=== PATIENT | male | born 1955 | race African-American/Black ===

== ENCOUNTER 2019-06-01 17:02 | Emergency (ER) | payer MEDICAID ==
[~2019-06-01] VITALS: Ht 154.9 cm; Wt 84.1 kg
[~2019-06-01 17:02] MED LIST: BUPR-93 PO; RISP2 PO
[2019-06-01 18:04] LABS: ANION GAP 14 mmol/L (8-16); CALCIUM, TOTAL 9.1 mg/dL (8.8-10.5); CARBON DIOXIDE 25 mmol/L (22-29); CHLORIDE 104 mmol/L (98-107); CREATININE 0.81 mg/dL (0.60-1.30); GLOMERULAR FILTR. RATE CALC > 60 mL/min (>60); GLUCOSE,RANDOM 92 mg/dL (70-110); POTASSIUM 3.9 mmol/L (3.5-5.1); SODIUM SERUM 143 mmol/L (136-145); UREA NITROGEN, BLOOD 4 mg/dL (7-18)
[2019-06-01 18:17] LABS: ALANINE AMINOTRANSFERASE 36 U/L (12-78); ALBUMIN 3.8 g/dL (3.4-5.0); ALKALINE PHOSPHATASE 101 U/L (46-116); ASPARTATE AMINOTRANSFERASE 46 U/L (15-37); BILIRUBIN,TOTAL 0.2 mg/dL (0.1-1.0); TOTAL PROTEIN, SERUM 8.1 g/dL (6.4-8.2)
[2019-06-01 18:20] LABS: BASOPHILS % (AUTO) 1.2 % (0.0-2.0); EOSINOPHILS % (AUTO) 3.4 % (1.0-6.0); HEMATOCRIT 44.9 % (41-53); HEMOGLOBIN 14.8 g/dL (13.5-17.5); LYMPHOCYTES # (AUTO) 2.8 K/uL (1.0-4.8); LYMPHOCYTES % (AUTO) 43.4 % (22.0-44.0); MEAN CORPUSCULAR HEMOGLOBIN 32.5 pg (26.0-34.0); MEAN CORPUSCULAR VOLUME 99 fL (80-100); MONOCYTES # (AUTO) 0.6 K/uL (0.1-1.0); MONOCYTES % (AUTO) 8.5 % (2.0-9.0); NEUTROPHILS # (AUTO) 2.9 K/uL (1.8-7.7); NEUTROPHILS % (AUTO) 43.5 % (40.0-70.0); PLATELET COUNT (AUTO) 260 K/uL (150-450); RED BLOOD CELL COUNT(AUTO) 4.56 MIL/uL (4.50-5.90)
[2019-06-01 18:34] LABS: AMPHET/METH SCREEN,URINE NEGATIVE (NEGATIVE); BARBITURATE SCREEN, URINE NEGATIVE (NEGATIVE); BENZODIAZEPINES SCREEN,URINE NEGATIVE (NEGATIVE); CANNABINOID SCREEN,URINE NEGATIVE (NEGATIVE); COCAINE SCREEN,URINE NEGATIVE (NEGATIVE); METHADONE SCREEN, URINE NEGATIVE (NEGATIVE); OPIATE SCREEN,URINE NEGATIVE (NEGATIVE)
[2019-06-01 18:38] LABS: PHENCYCLIDINE SCREEN,URINE NEGATIVE (NEGATIVE)
[2019-06-01] MEDS ORDERED: ACETAMINOPHEN 325 MG TABLET PO PRN (21:15)
[2019-06-01] MEDS ORDERED: ONDANSETRON HCL 4 MG/2 ML VIAL IVP PRN (21:15)
[2019-06-01] MEDS ORDERED: TOBRAMYCIN/DEXAMETHASONE 5 ML OPHTHALMIC SUSPENSION OU ONE (21:15)
[2019-06-01] MEDS: 0.9% SODIUM CHLORIDE 10 ML SYRINGE IVP PRN ×2 (21:25→21:26)
[2019-06-01] MEDS ORDERED: ONDANSETRON HCL 4 MG/2 ML VIAL IVP ONE (21:30)
[2019-06-01] MEDS ORDERED: SODIUM CHLORIDE 0.9% 1,000 ML IV ONE (21:30)
[2019-06-01 23:28] VITALS: BP 102/70
== END 2019-06-02 06:30 | disposition home or self-care (01) ==
LOC: EMS 17:02
DX: F10.129 Alcohol abuse with intoxication, unspecified (principal); R45.851 Suicidal ideations; M25.552 Pain in left hip; F32.9 Major depressive disorder, single episode, unspecified; F20.9 Schizophrenia, unspecified; F17.210 Nicotine dependence, cigarettes, uncomplicated; Y90.8 Blood alcohol level of 240 mg/100 ml or more
CPT/HCPCS: 36415; 80053; 80307; 85025; 96374; 99284; 99406; G0480; J2405; J7030

== ENCOUNTER 2019-06-20 16:47 | Emergency (ER) | payer MEDICAID ==
[~2019-06-20] VITALS: Ht 185.4 cm; Wt 81.8 kg
[2019-06-20] MEDS ORDERED: IRON18TA PO (16:59)
[2019-06-20] MEDS ORDERED: MULT-1203 PO (16:59)
[2019-06-20] MEDS ORDERED: NAPR-1024 PO (16:59)
[2019-06-20] MEDS ORDERED: SODIUM CHLORIDE 0.9% 1,000 ML IV ONE (17:00)
[2019-06-20 17:23] LABS: BASOPHILS % (AUTO) 0.8 % (0.0-2.0); EOSINOPHILS % (AUTO) 1.6 % (1.0-6.0); HEMATOCRIT 40.1 % (41-53); HEMOGLOBIN 13.3 g/dL (13.5-17.5); LYMPHOCYTES # (AUTO) 2.2 K/uL (1.0-4.8); LYMPHOCYTES % (AUTO) 47.1 % (22.0-44.0); MEAN CORPUSCULAR HEMOGLOBIN 32.8 pg (26.0-34.0); MEAN CORPUSCULAR HGB CONC 33.2 G/dL (31.0-37.0); MEAN CORPUSCULAR VOLUME 99 fL (80-100); MONOCYTES # (AUTO) 0.5 K/uL (0.1-1.0); MONOCYTES % (AUTO) 10.2 % (2.0-9.0); NEUTROPHILS # (AUTO) 1.8 K/uL (1.8-7.7); NEUTROPHILS % (AUTO) 40.3 % (40.0-70.0); PLATELET COUNT (AUTO) 248 K/uL (150-450); RED BLOOD CELL COUNT(AUTO) 4.05 MIL/uL (4.50-5.90); RED CELL DISTRIBUTION WIDTH 16.1 % (11.5-14.5)
[2019-06-20 17:39] LABS: AMMONIA 22 umol/L (11-32)
[2019-06-20 17:40] LABS: TROPONIN I < 0.02 ng/mL (0.00-0.05)
[2019-06-20 17:50] LABS: SALICYLATE 4.4 mg/dL (2.8-20.0)
[2019-06-20 17:59] LABS: CARBON DIOXIDE 20 mmol/L (22-29); CHLORIDE 105 mmol/L (98-107); POTASSIUM 3.5 mmol/L (3.5-5.1); SODIUM SERUM 140 mmol/L (136-145)
[2019-06-20 18:00] LABS: ALANINE AMINOTRANSFERASE 36 U/L (12-78); ALBUMIN 3.3 g/dL (3.4-5.0); ALKALINE PHOSPHATASE 76 U/L (46-116); ANION GAP 15 mmol/L (8-16); ASPARTATE AMINOTRANSFERASE 55 U/L (15-37); BILIRUBIN,TOTAL 0.3 mg/dL (0.1-1.0); CALCIUM, TOTAL 8.1 mg/dL (8.8-10.5); CREATINE KINASE, TOTAL ONLY 272 U/L (39-308); CREATININE 1.22 mg/dL (0.60-1.30); GLOMERULAR FILTR. RATE CALC > 60 mL/min (>60); GLUCOSE,RANDOM 94 mg/dL (70-110); TOTAL PROTEIN, SERUM 6.6 g/dL (6.4-8.2); UREA NITROGEN, BLOOD 5 mg/dL (7-18)
[2019-06-20 18:18] LABS: APPEARANCE,URINE CLEAR (CLEAR); BILIRUBIN,URINE NEGATIVE (NEGATIVE); GLUCOSE, URINE (UA) NEGATIVE (NEGATIVE); KETONES,URINE NEGATIVE (NEGATIVE); LEUKOCYTE ESTERASE ,URINE NEGATIVE (NEGATIVE); NITRATE,URINE NEGATIVE (NEGATIVE); OCCULT BLOOD,URINE NEGATIVE (NEGATIVE); PH,URINE 5.5 (5.0-8.0); PROTEIN,URINE POS 1+ (NEGATIVE); UROBILINOGEN,URINE 0.2 mg/dL (<=1.0)
[2019-06-20 18:22] LABS: ACETAMINOPHEN < 2 mcg/mL (10-30)
[2019-06-20 18:27] LABS: B-TYPE NATRIURETIC PEPTIDE 43 pg/mL (0-100)
[2019-06-20 18:29] LABS: AMPHET/METH SCREEN,URINE NEGATIVE (NEGATIVE); BARBITURATE SCREEN, URINE NEGATIVE (NEGATIVE); BENZODIAZEPINES SCREEN,URINE NEGATIVE (NEGATIVE); CANNABINOID SCREEN,URINE NEGATIVE (NEGATIVE); COCAINE SCREEN,URINE NEGATIVE (NEGATIVE); METHADONE SCREEN, URINE NEGATIVE (NEGATIVE); OPIATE SCREEN,URINE NEGATIVE (NEGATIVE); PHENCYCLIDINE SCREEN,URINE NEGATIVE (NEGATIVE)
[2019-06-20 18:32] LABS: BACTERIA,URINE None Seen /HPF (None Seen); RBC,URINE 0-2 /HPF (0-2); SQUAMOUS EPITHELIAL CELL,UR Rare /LPF (None Seen)
[2019-06-20] MEDS ORDERED: MAGNESIUM SULFATE 2 GM, MVI, ADULT NO.1 WITH VIT K 10 ML, THIAMINE HCL 100 MG, FOLIC AC... IV ONE ×5 (20:00)
[2019-06-20 22:05] VITALS: BP 101/79
== END 2019-06-20 22:25 | disposition home or self-care (01) ==
LOC: EMS 16:48
DX: S00.81XA Abrasion of other part of head, initial encounter (principal); E86.0 Dehydration; F10.129 Alcohol abuse with intoxication, unspecified; E46 Unspecified protein-calorie malnutrition; F17.210 Nicotine dependence, cigarettes, uncomplicated; F32.9 Major depressive disorder, single episode, unspecified; F20.9 Schizophrenia, unspecified; G89.29 Other chronic pain; Z68.23 Body mass index [BMI] 23.0-23.9, adult; Z59.0 Homelessness; X58.XXXA Exposure to other specified factors, initial encounter; Y93.89 Activity, other specified; Y92.89 Other specified places as the place of occurrence of the external cause; Y99.8 Other external cause status; Y90.8 Blood alcohol level of 240 mg/100 ml or more
CPT/HCPCS: 36415; 70450; 80053; 80307; 81001; 82140; 82550; 83880; 84484; 85025; 93005; 96361; 96365; 99285; 99406; G0480; J3411; J3475; J3490 ×2; J7030; G0481

== ENCOUNTER 2019-06-22 16:00 | Inpatient (IN) | payer MEDICAID ==
[~2019-06-22] VITALS: Ht 182.9 cm; Wt 69.9 kg
[~2019-06-22 16:00] MED LIST changes: +IRON18TA PO; +MULT-1203 PO; +NAPR-1024 PO
[2019-06-22 17:05] LABS: BASOPHILS % (AUTO) 1.1 % (0.0-2.0); EOSINOPHILS % (AUTO) 1.3 % (1.0-6.0); HEMATOCRIT 42.8 % (41-53); HEMOGLOBIN 14.4 g/dL (13.5-17.5); LYMPHOCYTES # (AUTO) 2.4 K/uL (1.0-4.8); MEAN CORPUSCULAR HEMOGLOBIN 33.2 pg (26.0-34.0); MEAN CORPUSCULAR HGB CONC 33.6 G/dL (31.0-37.0); MEAN CORPUSCULAR VOLUME 99 fL (80-100); MONOCYTES # (AUTO) 0.4 K/uL (0.1-1.0); MONOCYTES % (AUTO) 6.6 % (2.0-9.0); NEUTROPHILS # (AUTO) 2.7 K/uL (1.8-7.7); PLATELET COUNT (AUTO) 262 K/uL (150-450); RED BLOOD CELL COUNT(AUTO) 4.34 MIL/uL (4.50-5.90); RED CELL DISTRIBUTION WIDTH 16.4 % (11.5-14.5)
[2019-06-22 17:20] LABS: ANION GAP 8 mmol/L (8-16); CARBON DIOXIDE 28 mmol/L (22-29); CHLORIDE 103 mmol/L (98-107); CREATININE 0.82 mg/dL (0.60-1.30); GLOMERULAR FILTR. RATE CALC > 60 mL/min (>60); GLUCOSE,RANDOM 179 mg/dL (70-110); POTASSIUM 3.5 mmol/L (3.5-5.1); SODIUM SERUM 139 mmol/L (136-145); UREA NITROGEN, BLOOD 6 mg/dL (7-18)
[2019-06-22 17:26] LABS: ALANINE AMINOTRANSFERASE 32 U/L (12-78); ALBUMIN 3.8 g/dL (3.4-5.0); ALKALINE PHOSPHATASE 93 U/L (46-116); ASPARTATE AMINOTRANSFERASE 50 U/L (15-37); BILIRUBIN,TOTAL 0.4 mg/dL (0.1-1.0); TOTAL PROTEIN, SERUM 7.4 g/dL (6.4-8.2)
[2019-06-22] MEDS ORDERED: LORazepam 2 MG TABLET PO PRN ×2 (19:45)
[2019-06-22] MEDS ORDERED: HALOPERIDOL 5 MG TABLET PO PRN (19:45)
[2019-06-22] MEDS ORDERED: FERR-89 PO (19:48)
[2019-06-22] MEDS ORDERED: ALBUTEROL SULFATE HFA 90 MCG/PUFF 8 GM INHALER IH PRN (20:15)
[2019-06-22] MEDS ORDERED: DOCUSATE SODIUM 100 MG CAPSULE PO PRN (20:15)
[2019-06-22] MEDS ORDERED: GuaiFENesin/D-METHORPHAN [SUGAR-FREE] 200-20MG/10 ML SYRUP UDCUP PO PRN (20:15)
[2019-06-22] MEDS ORDERED: NICOTINE 14 MG/24 HOUR PATCH TD PRN (20:15)
[2019-06-22] MEDS ORDERED: MAG HYDROX/AL HYDROX/SIMETH ES 30 ML SUSPENSION UDCUP PO PRN (20:15)
[2019-06-22] MEDS ORDERED: ACETAMINOPHEN 325 MG TABLET PO PRN (20:15)
[2019-06-22] MEDS ORDERED: CloNIDine HCL 0.1 MG TABLET PO PRN (20:15)
[2019-06-22] MEDS ORDERED: MAGNESIUM HYDROXIDE SUSPENSION 30 ML UDCUP PO PRN (20:15)
[2019-06-22] MEDS ORDERED: PETROLATUM,WHITE 28 GM JELLY TP PRN (20:15)
[2019-06-22] MEDS ORDERED: LOPERAMIDE HCL 2 MG CAPSULE PO PRN (20:15)
[2019-06-22] MEDS ORDERED: ONDANSETRON HCL 4 MG TABLET PO PRN (20:15)
[2019-06-23] VITALS (11 sets, daily range): BP systolic 94–138; BP diastolic 67–90
[2019-06-23] MEDS ORDERED: LORazepam 2 MG TABLET PO PRN (07:00)
[2019-06-23] MEDS: FERROUS SULFATE 325 MG EC TABLET PO SCH (07:00)
[2019-06-23] MEDS: LORazepam 2 MG TABLET PO SCH ×4 (09:57→20:57)
[2019-06-23] MEDS: BuPROPion HCL XL 150 MG ER TABLET PO SCH (14:26)
[2019-06-23] MEDS: RisperiDONE 2 MG TABLET PO SCH (20:57)
[2019-06-24] VITALS (8 sets, daily range): BP systolic 100–134; BP diastolic 67–94
[2019-06-24] MEDS: FERROUS SULFATE 325 MG EC TABLET PO SCH (06:55)
[2019-06-24] MEDS: LORazepam 2 MG TABLET PO SCH ×4 (10:05→21:34)
[2019-06-24] MEDS: BuPROPion HCL XL 150 MG ER TABLET PO SCH (10:05)
[2019-06-24] MEDS ORDERED: CYANOCOBALAMIN 1,000 MCG/ML VIAL IM ONE (12:45)
[2019-06-24] MEDS ORDERED: LORazepam 2 MG TABLET PO PRN ×2 (13:00→13:15)
[2019-06-24] MEDS ORDERED: LORazepam 2 MG TABLET PO SCH (13:00)
[2019-06-24] MEDS: MULTIVITAMINS WITH MINERALS, THERAPEUTIC TABLET PO SCH (14:00)
[2019-06-24] MEDS: FOLIC ACID 1 MG TABLET PO SCH (14:00)
[2019-06-24] MEDS: THIAMINE HCL 100 MG TABLET PO SCH (16:55)
[2019-06-24] MEDS: RisperiDONE 2 MG TABLET PO SCH (21:34)
[2019-06-25 05:40] VITALS: BP 130/90
[2019-06-25] MEDS: FERROUS SULFATE 325 MG EC TABLET PO SCH (06:55)
[2019-06-25] MEDS ORDERED: LORazepam 2 MG TABLET PO PRN (07:00)
[2019-06-25] MEDS ORDERED: LORazepam 1 MG TABLET PO PRN (07:00)
[2019-06-25 08:00] VITALS: BP 148/113
[2019-06-25] MEDS: BuPROPion HCL XL 150 MG ER TABLET PO SCH (08:53)
[2019-06-25] MEDS: MULTIVITAMINS WITH MINERALS, THERAPEUTIC TABLET PO SCH (08:53)
[2019-06-25] MEDS: THIAMINE HCL 100 MG TABLET PO SCH ×2 (08:53→17:31)
[2019-06-25] MEDS: FOLIC ACID 1 MG TABLET PO SCH (08:53)
[2019-06-25] MEDS: LORazepam 1 MG TABLET PO SCH ×4 (08:53→21:12)
[2019-06-25] MEDS ORDERED: LORazepam 2 MG TABLET PO SCH (09:00)
[2019-06-25 09:03] VITALS: BP 148/113
[2019-06-25] MEDS: IBUPROFEN 400 MG TABLET PO PRN (09:03)
[2019-06-25 12:18] VITALS: BP 136/107
[2019-06-25] MEDS ORDERED: LISI-661 PO (12:34)
[2019-06-25] MEDS: LISINOPRIL 10 MG TABLET PO SCH (12:50)
[2019-06-25 19:04] VITALS: BP 143/96
[2019-06-25] MEDS: RisperiDONE 2 MG TABLET PO SCH (21:12)
[2019-06-26 05:31] VITALS: BP 130/89
[2019-06-26 05:34] VITALS: BP 130/89
[2019-06-26] MEDS: FERROUS SULFATE 325 MG EC TABLET PO SCH (06:50)
[2019-06-26] MEDS ORDERED: LORazepam 1 MG TABLET PO PRN ×2 (07:00)
[2019-06-26 08:00] VITALS: BP 109/75
[2019-06-26] MEDS ORDERED: LORazepam 1 MG TABLET PO SCH (09:00)
[2019-06-26] MEDS: THIAMINE HCL 100 MG TABLET PO SCH ×2 (09:01→16:41)
[2019-06-26] MEDS: BuPROPion HCL XL 150 MG ER TABLET PO SCH (09:01)
[2019-06-26] MEDS: MULTIVITAMINS WITH MINERALS, THERAPEUTIC TABLET PO SCH (09:01)
[2019-06-26] MEDS: FOLIC ACID 1 MG TABLET PO SCH (09:01)
[2019-06-26] MEDS: LISINOPRIL 10 MG TABLET PO SCH (09:01)
[2019-06-26 16:41] VITALS: BP 127/79
[2019-06-26] MEDS: IBUPROFEN 400 MG TABLET PO PRN (16:42)
[2019-06-26 19:19] VITALS: BP 110/67
[2019-06-26] MEDS: RisperiDONE 2 MG TABLET PO SCH (20:49)
[2019-06-27 06:11] VITALS: BP 104/72
[2019-06-27] MEDS: FERROUS SULFATE 325 MG EC TABLET PO SCH (06:48)
[2019-06-27] MEDS ORDERED: LORazepam 1 MG TABLET PO PRN ×2 (07:00)
[2019-06-27 08:00] VITALS: BP 117/76
[2019-06-27] MEDS ORDERED: LORazepam 1 MG TABLET PO SCH (09:00)
[2019-06-27] MEDS: THIAMINE HCL 100 MG TABLET PO SCH ×2 (09:09→17:16)
[2019-06-27] MEDS: FOLIC ACID 1 MG TABLET PO SCH (09:09)
[2019-06-27] MEDS: MULTIVITAMINS WITH MINERALS, THERAPEUTIC TABLET PO SCH (09:09)
[2019-06-27] MEDS: BuPROPion HCL XL 150 MG ER TABLET PO SCH (09:09)
[2019-06-27] MEDS: LISINOPRIL 10 MG TABLET PO SCH (09:09)
[2019-06-27] MEDS: IBUPROFEN 400 MG TABLET PO PRN (13:05)
[2019-06-27 16:08] VITALS: BP 107/71
[2019-06-27 17:44] VITALS: BP 107/71
[2019-06-27] MEDS: RisperiDONE 2 MG TABLET PO SCH (20:34)
[2019-06-28 05:31] VITALS: BP 119/82
[2019-06-28] MEDS: FERROUS SULFATE 325 MG EC TABLET PO SCH (06:43)
[2019-06-28] MEDS ORDERED: LORazepam 1 MG TABLET PO PRN (07:00)
[2019-06-28] MEDS: FOLIC ACID 1 MG TABLET PO SCH (08:24)
[2019-06-28] MEDS: BuPROPion HCL XL 150 MG ER TABLET PO SCH (08:24)
[2019-06-28] MEDS: THIAMINE HCL 100 MG TABLET PO SCH ×2 (08:24→16:42)
[2019-06-28] MEDS: MULTIVITAMINS WITH MINERALS, THERAPEUTIC TABLET PO SCH (08:25)
[2019-06-28] MEDS: LISINOPRIL 10 MG TABLET PO SCH (08:25)
[2019-06-28 09:29] VITALS: BP 134/84
[2019-06-28] MEDS ORDERED: FOLI1 PO (13:57)
[2019-06-28] MEDS ORDERED: THIA100T67 PO (13:57)
[2019-06-28 17:22] VITALS: BP 114/73
[2019-06-28] MEDS: RisperiDONE 2 MG TABLET PO SCH (20:09)
[2019-06-28] MEDS: ZOLPIDEM TARTRATE 10 MG TABLET PO PRN (21:25)
[2019-06-29] MEDS: FERROUS SULFATE 325 MG EC TABLET PO SCH (06:52)
[2019-06-29] MEDS: MULTIVITAMINS WITH MINERALS, THERAPEUTIC TABLET PO SCH (08:29)
[2019-06-29] MEDS: FOLIC ACID 1 MG TABLET PO SCH (08:29)
[2019-06-29] MEDS: BuPROPion HCL XL 150 MG ER TABLET PO SCH (08:29)
[2019-06-29] MEDS: THIAMINE HCL 100 MG TABLET PO SCH ×2 (08:29→16:33)
[2019-06-29] MEDS: LISINOPRIL 10 MG TABLET PO SCH (08:30)
[2019-06-29 09:11] VITALS: BP 129/93
[2019-06-29 18:29] VITALS: BP 118/81
[2019-06-29] MEDS: RisperiDONE 2 MG TABLET PO SCH (20:09)
[2019-06-29] MEDS: IBUPROFEN 400 MG TABLET PO PRN (20:09)
[2019-06-29 20:10] VITALS: BP 120/78
[2019-06-30] MEDS: FERROUS SULFATE 325 MG EC TABLET PO SCH (06:53)
[2019-06-30 09:02] VITALS: BP 114/72
[2019-06-30] MEDS: LISINOPRIL 10 MG TABLET PO SCH (09:11)
[2019-06-30] MEDS: BuPROPion HCL XL 150 MG ER TABLET PO SCH (09:11)
[2019-06-30] MEDS: FOLIC ACID 1 MG TABLET PO SCH (09:11)
[2019-06-30] MEDS: MULTIVITAMINS WITH MINERALS, THERAPEUTIC TABLET PO SCH (09:12)
[2019-06-30] MEDS: THIAMINE HCL 100 MG TABLET PO SCH ×2 (09:13→16:14)
[2019-06-30] MEDS: IBUPROFEN 400 MG TABLET PO PRN ×2 (09:26→16:14)
[2019-06-30 17:02] VITALS: BP 119/83
[2019-06-30] MEDS: RisperiDONE 2 MG TABLET PO SCH (20:26)
[2019-06-30] MEDS: ZOLPIDEM TARTRATE 10 MG TABLET PO PRN (20:30)
[2019-07-01] MEDS: FERROUS SULFATE 325 MG EC TABLET PO SCH (06:43)
[2019-07-01 09:00] VITALS: BP 121/82
[2019-07-01] MEDS: THIAMINE HCL 100 MG TABLET PO SCH ×2 (09:32→16:44)
[2019-07-01] MEDS: MULTIVITAMINS WITH MINERALS, THERAPEUTIC TABLET PO SCH (09:32)
[2019-07-01] MEDS: BuPROPion HCL XL 150 MG ER TABLET PO SCH (09:33)
[2019-07-01] MEDS: FOLIC ACID 1 MG TABLET PO SCH (09:33)
[2019-07-01] MEDS: LISINOPRIL 10 MG TABLET PO SCH (09:33)
[2019-07-01] MEDS: RisperiDONE 2 MG TABLET PO SCH (20:44)
[2019-07-01] MEDS: ZOLPIDEM TARTRATE 10 MG TABLET PO PRN (20:44)
[2019-07-01 20:45] VITALS: BP 110/72
[2019-07-02 05:53] VITALS: BP 129/89
[2019-07-02] MEDS: FERROUS SULFATE 325 MG EC TABLET PO SCH (06:44)
[2019-07-02 08:00] VITALS: BP 122/73
[2019-07-02] MEDS: BuPROPion HCL XL 150 MG ER TABLET PO SCH (09:37)
[2019-07-02] MEDS: THIAMINE HCL 100 MG TABLET PO SCH ×2 (09:37→16:22)
[2019-07-02] MEDS: LISINOPRIL 10 MG TABLET PO SCH (09:37)
[2019-07-02] MEDS: MULTIVITAMINS WITH MINERALS, THERAPEUTIC TABLET PO SCH (09:37)
[2019-07-02] MEDS: FOLIC ACID 1 MG TABLET PO SCH (09:37)
[2019-07-02] MEDS ORDERED: BuPROPion HCL XL 150 MG ER TABLET PO ONE (11:00)
[2019-07-02 18:06] VITALS: BP 102/72
[2019-07-02] MEDS: ZOLPIDEM TARTRATE 10 MG TABLET PO PRN (20:20)
[2019-07-02] MEDS: RisperiDONE 2 MG TABLET PO SCH (20:21)
[2019-07-03] MEDS: FERROUS SULFATE 325 MG EC TABLET PO SCH (06:51)
[2019-07-03] MEDS: FOLIC ACID 1 MG TABLET PO SCH (08:24)
[2019-07-03] MEDS: MULTIVITAMINS WITH MINERALS, THERAPEUTIC TABLET PO SCH (08:24)
[2019-07-03] MEDS: LISINOPRIL 10 MG TABLET PO SCH (08:24)
[2019-07-03] MEDS: THIAMINE HCL 100 MG TABLET PO SCH ×2 (08:24→16:23)
[2019-07-03] MEDS: BuPROPion HCL XL 150 MG ER TABLET PO SCH (08:24)
[2019-07-03 09:09] VITALS: BP 124/85
[2019-07-03] MEDS: RisperiDONE 1 MG TABLET PO SCH (13:37)
[2019-07-03 16:45] VITALS: BP 114/75
[2019-07-03] MEDS: RisperiDONE 2 MG TABLET PO SCH (20:23)
[2019-07-03] MEDS: ZOLPIDEM TARTRATE 10 MG TABLET PO PRN (22:40)
[2019-07-04] MEDS: FERROUS SULFATE 325 MG EC TABLET PO SCH (07:05)
[2019-07-04 08:45] VITALS: BP 110/76
[2019-07-04] MEDS: BuPROPion HCL XL 150 MG ER TABLET PO SCH (08:56)
[2019-07-04] MEDS: MULTIVITAMINS WITH MINERALS, THERAPEUTIC TABLET PO SCH (08:56)
[2019-07-04] MEDS: LISINOPRIL 10 MG TABLET PO SCH (08:56)
[2019-07-04] MEDS: THIAMINE HCL 100 MG TABLET PO SCH (08:56)
[2019-07-04] MEDS: RisperiDONE 1 MG TABLET PO SCH (08:56)
[2019-07-04 17:05] VITALS: BP 109/75
[2019-07-04] MEDS: ZOLPIDEM TARTRATE 10 MG TABLET PO PRN (20:13)
[2019-07-04] MEDS: RisperiDONE 2 MG TABLET PO SCH (20:13)
[2019-07-05] MEDS: FERROUS SULFATE 325 MG EC TABLET PO SCH (06:47)
[2019-07-05] MEDS: LISINOPRIL 10 MG TABLET PO SCH (09:31)
[2019-07-05] MEDS: MULTIVITAMINS WITH MINERALS, THERAPEUTIC TABLET PO SCH (09:31)
[2019-07-05] MEDS: BuPROPion HCL XL 150 MG ER TABLET PO SCH (09:32)
[2019-07-05] MEDS: RisperiDONE 1 MG TABLET PO SCH (09:32)
[2019-07-05 15:40] VITALS: BP 110/88
[2019-07-05] MEDS: IBUPROFEN 400 MG TABLET PO PRN (15:40)
[2019-07-05] MEDS: RisperiDONE 2 MG TABLET PO SCH (20:43)
[2019-07-06] MEDS: FERROUS SULFATE 325 MG EC TABLET PO SCH (06:55)
[2019-07-06] MEDS: BuPROPion HCL XL 150 MG ER TABLET PO SCH (08:42)
[2019-07-06] MEDS: LISINOPRIL 10 MG TABLET PO SCH (08:43)
[2019-07-06] MEDS: MULTIVITAMINS WITH MINERALS, THERAPEUTIC TABLET PO SCH (08:43)
[2019-07-06] MEDS: RisperiDONE 1 MG TABLET PO SCH (08:43)
[2019-07-06 10:39] VITALS: BP 126/92
[2019-07-06] MEDS ORDERED: RISP1 PO (13:33)
== END 2019-07-06 15:00 | disposition home or self-care (01) | DRG 754 ==
LOC: EMS 16:01 → 3EI 22:29
PROVIDERS: ADMIT Psychiatry & Neurology Psychiatry; ATTEND Psychiatry & Neurology Psychiatry
DX: F32.9 Major depressive disorder, single episode, unspecified (principal); R45.851 Suicidal ideations; D64.9 Anemia, unspecified; Z59.0 Homelessness; I10 Essential (primary) hypertension; M19.90 Unspecified osteoarthritis, unspecified site; F10.10 Alcohol abuse, uncomplicated; G89.29 Other chronic pain; M25.552 Pain in left hip; F17.210 Nicotine dependence, cigarettes, uncomplicated; R73.9 Hyperglycemia, unspecified
CPT/HCPCS: 87081; G0480; J3420

== ENCOUNTER 2019-10-14 21:21 | Emergency (ER) | payer MEDICAID ==
[~2019-10-14] VITALS: Ht 182.9 cm; Wt 75.0 kg
[~2019-10-14 21:21] MED LIST changes: +FERR-89 PO; -IRON18TA PO; +LISI-661 PO; -NAPR-1024 PO; +RISP1 PO
[2019-10-14] MEDS ORDERED: NAPR500T6 PO (21:35)
[2019-10-14 21:37] VITALS: BP 160/75
== END 2019-10-14 22:22 | disposition home or self-care (01) ==
LOC: EMS 21:21
DX: F10.20 Alcohol dependence, uncomplicated (principal); F32.9 Major depressive disorder, single episode, unspecified; F20.9 Schizophrenia, unspecified; F17.210 Nicotine dependence, cigarettes, uncomplicated; G89.29 Other chronic pain; Z79.899 Other long term (current) drug therapy

== ENCOUNTER 2019-10-15 00:10 | Inpatient (IN) | payer MEDICAID ==
[~2019-10-15] VITALS: Ht 180.3 cm; Wt 67.8 kg
[~2019-10-15 00:10] MED LIST changes: +NAPR500T6 PO; -RISP1 PO
[2019-10-15 01:36] LABS: BASOPHILS % (AUTO) 0.8 % (0.0-2.0); EOSINOPHILS % (AUTO) 1.4 % (1.0-6.0); HEMATOCRIT 46.6 % (41-53); HEMOGLOBIN 15.7 g/dL (13.5-17.5); LYMPHOCYTES % (AUTO) 22.2 % (22.0-44.0); MEAN CORPUSCULAR HEMOGLOBIN 32.4 pg (26.0-34.0); MEAN CORPUSCULAR HGB CONC 33.7 G/dL (31.0-37.0); MEAN CORPUSCULAR VOLUME 96 fL (80-100); MONOCYTES # (AUTO) 1.1 K/uL (0.1-1.0); MONOCYTES % (AUTO) 11.4 % (2.0-9.0); NEUTROPHILS # (AUTO) 5.9 K/uL (1.8-7.7); NEUTROPHILS % (AUTO) 64.2 % (40.0-70.0); PLATELET COUNT (AUTO) 202 K/uL (150-450); RED BLOOD CELL COUNT(AUTO) 4.84 MIL/uL (4.50-5.90); RED CELL DISTRIBUTION WIDTH 14.7 % (11.5-14.5)
[2019-10-15 01:46] LABS: ANION GAP 13 mmol/L (8-16); CARBON DIOXIDE 28 mmol/L (22-29); CHLORIDE 100 mmol/L (98-107); CREATININE 0.74 mg/dL (0.60-1.30); GLOMERULAR FILTR. RATE CALC > 60 mL/min (>60); GLUCOSE,RANDOM 104 mg/dL (70-110); POTASSIUM 3.5 mmol/L (3.5-5.1); SODIUM SERUM 141 mmol/L (136-145); UREA NITROGEN, BLOOD 8 mg/dL (7-18)
[2019-10-15 01:51] LABS: ALANINE AMINOTRANSFERASE 143 U/L (12-78); ALBUMIN 4.2 g/dL (3.4-5.0); ALKALINE PHOSPHATASE 117 U/L (46-116); ASPARTATE AMINOTRANSFERASE 175 U/L (15-37); BILIRUBIN,TOTAL 0.5 mg/dL (0.1-1.0)
[2019-10-15] MEDS ORDERED: ZOLPIDEM TARTRATE 10 MG TABLET PO PRN (02:30)
[2019-10-15 02:35] LABS: AMPHET/METH SCREEN,URINE NEGATIVE (NEGATIVE); BARBITURATE SCREEN, URINE NEGATIVE (NEGATIVE); BENZODIAZEPINES SCREEN,URINE NEGATIVE (NEGATIVE); CANNABINOID SCREEN,URINE NEGATIVE (NEGATIVE); COCAINE SCREEN,URINE NEGATIVE (NEGATIVE); METHADONE SCREEN, URINE NEGATIVE (NEGATIVE); OPIATE SCREEN,URINE NEGATIVE (NEGATIVE); PHENCYCLIDINE SCREEN,URINE NEGATIVE (NEGATIVE)
[2019-10-15] MEDS ORDERED: RisperiDONE 1 MG TABLET PO ONE (03:00)
[2019-10-15 03:13] LABS: APPEARANCE,URINE CLEAR (CLEAR); BILIRUBIN,URINE NEGATIVE (NEGATIVE); GLUCOSE, URINE (UA) NEGATIVE (NEGATIVE); KETONES,URINE NEGATIVE (NEGATIVE); LEUKOCYTE ESTERASE ,URINE NEGATIVE (NEGATIVE); NITRATE,URINE NEGATIVE (NEGATIVE); OCCULT BLOOD,URINE NEGATIVE (NEGATIVE); PH,URINE 5.5 (5.0-8.0); PROTEIN,URINE POS 1+ (NEGATIVE)
[2019-10-15 05:12] VITALS: BP 124/86
[2019-10-15] MEDS ORDERED: PNEUMOCOCCAL VACCINE POLYVALENT 0.5 ML VIAL [PPSV23] IM ONE (06:00)
[2019-10-15] MEDS ORDERED: IBUPROFEN 400 MG TABLET PO PRN ×2 (06:45→07:15)
[2019-10-15] MEDS ORDERED: ALBUTEROL SULFATE HFA 90 MCG/PUFF 8 GM INHALER IH PRN (07:15)
[2019-10-15] MEDS ORDERED: MAGNESIUM HYDROXIDE SUSPENSION 30 ML UDCUP PO PRN (07:15)
[2019-10-15] MEDS ORDERED: CloNIDine HCL 0.1 MG TABLET PO PRN (07:15)
[2019-10-15] MEDS ORDERED: ACETAMINOPHEN 325 MG TABLET PO PRN (07:15)
[2019-10-15] MEDS ORDERED: ONDANSETRON HCL 4 MG TABLET PO PRN (07:15)
[2019-10-15] MEDS ORDERED: GuaiFENesin/D-METHORPHAN [SUGAR-FREE] 200-20MG/10 ML SYRUP UDCUP PO PRN (07:15)
[2019-10-15] MEDS ORDERED: PETROLATUM,WHITE 28 GM JELLY TP PRN (07:15)
[2019-10-15] MEDS ORDERED: NICOTINE 14 MG/24 HOUR PATCH TD PRN (07:15)
[2019-10-15] MEDS ORDERED: MAG HYDROX/AL HYDROX/SIMETH ES 30 ML SUSPENSION UDCUP PO PRN (07:15)
[2019-10-15] MEDS ORDERED: DOCUSATE SODIUM 100 MG CAPSULE PO PRN (07:15)
[2019-10-15] MEDS ORDERED: LOPERAMIDE HCL 2 MG CAPSULE PO PRN (07:15)
[2019-10-15] MEDS: BuPROPion HCL XL 150 MG ER TABLET PO SCH (10:47)
[2019-10-15] MEDS: FERROUS SULFATE 325 MG EC TABLET PO SCH (10:47)
[2019-10-15] MEDS: LISINOPRIL 10 MG TABLET PO SCH (10:48)
[2019-10-15 11:40] VITALS: BP 117/72
[2019-10-15] MEDS: LORazepam 2 MG TABLET PO PRN (14:05)
[2019-10-15 18:27] VITALS: BP 120/76
[2019-10-15] MEDS: RisperiDONE 2 MG TABLET PO SCH (20:09)
[2019-10-16] MEDS: FERROUS SULFATE 325 MG EC TABLET PO SCH (06:42)
[2019-10-16 08:19] LABS: CHOL/HDL RATIO 2.4 (4.2-7.3)
[2019-10-16] MEDS: BuPROPion HCL XL 150 MG ER TABLET PO SCH (08:22)
[2019-10-16] MEDS: LISINOPRIL 10 MG TABLET PO SCH (08:22)
[2019-10-16 08:37] VITALS: BP 113/81
[2019-10-16 17:33] VITALS: BP 106/69
[2019-10-16] MEDS: RisperiDONE 2 MG TABLET PO SCH (20:49)
[2019-10-17] MEDS: FERROUS SULFATE 325 MG EC TABLET PO SCH (06:11)
[2019-10-17] MEDS: LISINOPRIL 10 MG TABLET PO SCH (08:24)
[2019-10-17] MEDS: BuPROPion HCL XL 150 MG ER TABLET PO SCH (08:24)
[2019-10-17 09:08] VITALS: BP 120/88
[2019-10-17] MEDS: HALOPERIDOL 5 MG TABLET PO PRN ×2 (12:30→21:34)
[2019-10-17] MEDS: LORazepam 2 MG TABLET PO PRN ×2 (12:30→21:34)
[2019-10-17 18:34] VITALS: BP 108/69
[2019-10-17] MEDS: RisperiDONE 2 MG TABLET PO SCH (20:05)
[2019-10-18 01:09] VITALS: BP 124/97
[2019-10-18] MEDS: FERROUS SULFATE 325 MG EC TABLET PO SCH (06:42)
[2019-10-18] MEDS: LISINOPRIL 10 MG TABLET PO SCH (08:41)
[2019-10-18] MEDS: BuPROPion HCL XL 150 MG ER TABLET PO SCH (08:41)
[2019-10-18 09:15] VITALS: BP 131/84
[2019-10-18] MEDS: HALOPERIDOL 5 MG TABLET PO PRN (10:20)
[2019-10-18] MEDS: LORazepam 2 MG TABLET PO PRN (10:20)
[2019-10-18 16:42] VITALS: BP 118/81
[2019-10-18] MEDS: RisperiDONE 2 MG TABLET PO SCH (20:15)
[2019-10-19 05:30] VITALS: BP 122/81
[2019-10-19] MEDS: FERROUS SULFATE 325 MG EC TABLET PO SCH (06:36)
[2019-10-19] MEDS: LISINOPRIL 10 MG TABLET PO SCH (08:06)
[2019-10-19] MEDS: BuPROPion HCL XL 150 MG ER TABLET PO SCH (08:06)
[2019-10-19 13:09] VITALS: BP 107/70
[2019-10-19 17:52] VITALS: BP 99/68
[2019-10-19] MEDS: RisperiDONE 2 MG TABLET PO SCH (20:25)
[2019-10-20] MEDS: FERROUS SULFATE 325 MG EC TABLET PO SCH (06:44)
[2019-10-20] MEDS: LISINOPRIL 10 MG TABLET PO SCH (08:39)
[2019-10-20] MEDS: BuPROPion HCL XL 150 MG ER TABLET PO SCH (08:39)
[2019-10-20 10:42] VITALS: BP 116/84
[2019-10-20 18:33] VITALS: BP 103/73
[2019-10-20] MEDS: RisperiDONE 2 MG TABLET PO SCH (21:05)
[2019-10-21 00:05] VITALS: BP 126/86
[2019-10-21] MEDS: FERROUS SULFATE 325 MG EC TABLET PO SCH (06:53)
[2019-10-21] MEDS: LISINOPRIL 10 MG TABLET PO SCH (09:12)
[2019-10-21] MEDS: BuPROPion HCL XL 150 MG ER TABLET PO SCH (09:12)
[2019-10-21 09:32] VITALS: BP 133/86
[2019-10-21 16:23] VITALS: BP 125/74
[2019-10-21] MEDS: RisperiDONE 2 MG TABLET PO SCH (20:15)
[2019-10-22] MEDS: FERROUS SULFATE 325 MG EC TABLET PO SCH (06:58)
[2019-10-22] MEDS: BuPROPion HCL XL 150 MG ER TABLET PO SCH (08:40)
[2019-10-22] MEDS: LISINOPRIL 10 MG TABLET PO SCH (08:40)
[2019-10-22 10:17] VITALS: BP 113/76
[2019-10-22] MEDS ORDERED: BuPROPion HCL XL 150 MG ER TABLET PO ONE (11:00)
[2019-10-22] MEDS: RisperiDONE 2 MG TABLET PO SCH (20:23)
[2019-10-22 21:50] VITALS: BP 120/87
[2019-10-23 02:10] VITALS: BP 121/91
[2019-10-23] MEDS: FERROUS SULFATE 325 MG EC TABLET PO SCH (06:52)
[2019-10-23 08:33] VITALS: BP 118/76
[2019-10-23] MEDS ORDERED: THIAMINE HCL 100 MG TABLET PO ONE (09:00)
[2019-10-23] MEDS ORDERED: FOLIC ACID 1 MG TABLET PO SCH (09:00)
[2019-10-23] MEDS ORDERED: BuPROPion HCL XL 150 MG ER TABLET PO SCH (09:00)
[2019-10-23] MEDS: LISINOPRIL 10 MG TABLET PO SCH (09:03)
== END 2019-10-23 15:10 | disposition home or self-care (01) | DRG 885 ==
LOC: EMS 00:10 → 3EI 03:30
PROVIDERS: ADMIT Psychiatry & Neurology Psychiatry; ATTEND Psychiatry & Neurology Psychiatry
PROC: 3E0234Z Introduction of Serum, Toxoid and Vaccine into Muscle, Percutaneous Approach (ICD-10-PCS; principal; 2019-10-15)
DX: F33.2 Major depressive disorder, recurrent severe without psychotic features (principal); R45.851 Suicidal ideations; D64.9 Anemia, unspecified; I10 Essential (primary) hypertension; M25.552 Pain in left hip; F17.210 Nicotine dependence, cigarettes, uncomplicated; F20.9 Schizophrenia, unspecified; F10.10 Alcohol abuse, uncomplicated; Y90.4 Blood alcohol level of 80-99 mg/100 ml; R74.0 Nonspecific elevation of levels of transaminase and lactic acid dehydrogenase [LDH]; F41.9 Anxiety disorder, unspecified; Z59.0 Homelessness; Z90.49 Acquired absence of other specified parts of digestive tract; Z23 Encounter for immunization
CPT/HCPCS: 90732; G0480

== ENCOUNTER 2019-10-23 23:52 | Emergency (ER) | payer MEDICAID ==
[~2019-10-23] VITALS: Ht 177.8 cm; Wt 72.7 kg
[2019-10-24 00:57] LABS: EOSINOPHILS % (AUTO) 1.2 % (1.0-6.0); HEMATOCRIT 45.5 % (41-53); HEMOGLOBIN 14.8 g/dL (13.5-17.5); LYMPHOCYTES % (AUTO) 34.5 % (22.0-44.0); MEAN CORPUSCULAR HEMOGLOBIN 31.9 pg (26.0-34.0); MEAN CORPUSCULAR HGB CONC 32.6 G/dL (31.0-37.0); MEAN CORPUSCULAR VOLUME 98 fL (80-100); MONOCYTES # (AUTO) 0.8 K/uL (0.1-1.0); MONOCYTES % (AUTO) 9.4 % (2.0-9.0); NEUTROPHILS # (AUTO) 4.7 K/uL (1.8-7.7); NEUTROPHILS % (AUTO) 53.9 % (40.0-70.0); PLATELET COUNT (AUTO) 450 K/uL (150-450); RED BLOOD CELL COUNT(AUTO) 4.65 MIL/uL (4.50-5.90)
[2019-10-24 01:07] LABS: ANION GAP 10 mmol/L (8-16); CALCIUM, TOTAL 9.4 mg/dL (8.8-10.5); CARBON DIOXIDE 27 mmol/L (22-29); CHLORIDE 106 mmol/L (98-107); CREATININE 0.79 mg/dL (0.60-1.30); GLOMERULAR FILTR. RATE CALC > 60 mL/min (>60); GLUCOSE,RANDOM 109 mg/dL (70-110); POTASSIUM 4.5 mmol/L (3.5-5.1); SODIUM SERUM 143 mmol/L (136-145); UREA NITROGEN, BLOOD 5 mg/dL (7-18)
[2019-10-24 01:13] LABS: ALANINE AMINOTRANSFERASE 54 U/L (12-78); ALBUMIN 3.9 g/dL (3.4-5.0); ALKALINE PHOSPHATASE 98 U/L (46-116); ASPARTATE AMINOTRANSFERASE 27 U/L (15-37); BILIRUBIN,TOTAL 0.2 mg/dL (0.1-1.0); TOTAL PROTEIN, SERUM 8.4 g/dL (6.4-8.2)
[2019-10-24 05:30] VITALS: BP 125/76
[2019-10-24 06:04] LABS: AMPHET/METH SCREEN,URINE NEGATIVE (NEGATIVE); BARBITURATE SCREEN, URINE NEGATIVE (NEGATIVE); BENZODIAZEPINES SCREEN,URINE NEGATIVE (NEGATIVE); CANNABINOID SCREEN,URINE NEGATIVE (NEGATIVE); COCAINE SCREEN,URINE NEGATIVE (NEGATIVE); METHADONE SCREEN, URINE NEGATIVE (NEGATIVE); OPIATE SCREEN,URINE NEGATIVE (NEGATIVE)
[2019-10-24 06:05] LABS: PHENCYCLIDINE SCREEN,URINE NEGATIVE (NEGATIVE)
== END 2019-10-24 08:42 | disposition home or self-care (01) ==
LOC: EMS 23:54
DX: F10.129 Alcohol abuse with intoxication, unspecified (principal); F32.9 Major depressive disorder, single episode, unspecified; F20.9 Schizophrenia, unspecified; G89.29 Other chronic pain; F17.210 Nicotine dependence, cigarettes, uncomplicated; Y90.8 Blood alcohol level of 240 mg/100 ml or more; Z79.899 Other long term (current) drug therapy
CPT/HCPCS: 36415; 80053; 80307; 85025; 99284; G0480

== ENCOUNTER 2019-10-24 13:45 | Emergency (ER) | payer MEDICAID ==
[~2019-10-24] VITALS: Ht 180.3 cm; Wt 68.2 kg
[~2019-10-24 13:45] MED LIST changes: -NAPR500T6 PO
[2019-10-24 15:27] LABS: BASOPHILS % (AUTO) 0.6 % (0.0-2.0); EOSINOPHILS % (AUTO) 1.5 % (1.0-6.0); HEMATOCRIT 44.7 % (41-53); HEMOGLOBIN 15.3 g/dL (13.5-17.5); LYMPHOCYTES % (AUTO) 34.8 % (22.0-44.0); MEAN CORPUSCULAR HEMOGLOBIN 33.1 pg (26.0-34.0); MEAN CORPUSCULAR HGB CONC 34.2 G/dL (31.0-37.0); MEAN CORPUSCULAR VOLUME 97 fL (80-100); MONOCYTES # (AUTO) 0.8 K/uL (0.1-1.0); MONOCYTES % (AUTO) 9.7 % (2.0-9.0); NEUTROPHILS # (AUTO) 4.6 K/uL (1.8-7.7); NEUTROPHILS % (AUTO) 53.4 % (40.0-70.0); PLATELET COUNT (AUTO) 502 K/uL (150-450); RED BLOOD CELL COUNT(AUTO) 4.61 MIL/uL (4.50-5.90)
[2019-10-24 15:38] LABS: ANION GAP 13 mmol/L (8-16); CALCIUM, TOTAL 9.3 mg/dL (8.8-10.5); CARBON DIOXIDE 25 mmol/L (22-29); CHLORIDE 107 mmol/L (98-107); GLOMERULAR FILTR. RATE CALC > 60 mL/min (>60); GLUCOSE,RANDOM 94 mg/dL (70-110); POTASSIUM 4.4 mmol/L (3.5-5.1); SODIUM SERUM 145 mmol/L (136-145); UREA NITROGEN, BLOOD 6 mg/dL (7-18)
[2019-10-24 15:44] LABS: ALANINE AMINOTRANSFERASE 54 U/L (12-78); ALKALINE PHOSPHATASE 109 U/L (46-116); ASPARTATE AMINOTRANSFERASE 31 U/L (15-37); BILIRUBIN,TOTAL 0.2 mg/dL (0.1-1.0); TOTAL PROTEIN, SERUM 8.4 g/dL (6.4-8.2)
[2019-10-24 15:47] LABS: PLATELET MORPHOLOGY COMMENT GIANT PLTS PRESENT
[2019-10-24 16:02] LABS: AMPHET/METH SCREEN,URINE NEGATIVE (NEGATIVE); BARBITURATE SCREEN, URINE NEGATIVE (NEGATIVE); BENZODIAZEPINES SCREEN,URINE NEGATIVE (NEGATIVE); CANNABINOID SCREEN,URINE NEGATIVE (NEGATIVE); COCAINE SCREEN,URINE NEGATIVE (NEGATIVE); METHADONE SCREEN, URINE NEGATIVE (NEGATIVE); OPIATE SCREEN,URINE NEGATIVE (NEGATIVE)
[2019-10-24 16:05] LABS: PHENCYCLIDINE SCREEN,URINE NEGATIVE (NEGATIVE)
[2019-10-24] MEDS ORDERED: RisperiDONE 1 MG TABLET PO ONE (16:15)
[2019-10-24 17:00] VITALS: BP 126/76
== END 2019-10-24 17:15 | disposition home or self-care (01) ==
LOC: EMS 13:47
DX: F20.9 Schizophrenia, unspecified (principal); F10.229 Alcohol dependence with intoxication, unspecified; G89.29 Other chronic pain; F17.210 Nicotine dependence, cigarettes, uncomplicated; F32.9 Major depressive disorder, single episode, unspecified; Z79.899 Other long term (current) drug therapy; Y90.7 Blood alcohol level of 200-239 mg/100 ml
CPT/HCPCS: 36415; 80053; 80307; 85025; 99284; 99406; G0480

== ENCOUNTER 2019-10-24 22:32 | Emergency (ER) | payer MEDICAID ==
[~2019-10-24] VITALS: Ht 180.3 cm; Wt 68.2 kg
[~2019-10-24 22:32] MED LIST changes: +NAPR500T6 PO
[2019-10-25 01:21] LABS: BASOPHILS % (AUTO) 0.8 % (0.0-2.0); EOSINOPHILS % (AUTO) 2.2 % (1.0-6.0); HEMATOCRIT 44.4 % (41-53); HEMOGLOBIN 14.7 g/dL (13.5-17.5); LYMPHOCYTES # (AUTO) 3.1 K/uL (1.0-4.8); LYMPHOCYTES % (AUTO) 39.6 % (22.0-44.0); MEAN CORPUSCULAR HEMOGLOBIN 32.1 pg (26.0-34.0); MEAN CORPUSCULAR VOLUME 97 fL (80-100); MONOCYTES # (AUTO) 0.8 K/uL (0.1-1.0); MONOCYTES % (AUTO) 10.6 % (2.0-9.0); NEUTROPHILS # (AUTO) 3.7 K/uL (1.8-7.7); NEUTROPHILS % (AUTO) 46.8 % (40.0-70.0); PLATELET COUNT (AUTO) 485 K/uL (150-450); RED BLOOD CELL COUNT(AUTO) 4.56 MIL/uL (4.50-5.90); RED CELL DISTRIBUTION WIDTH 13.8 % (11.5-14.5)
[2019-10-25 01:31] LABS: ANION GAP 11 mmol/L (8-16); CALCIUM, TOTAL 9.3 mg/dL (8.8-10.5); CARBON DIOXIDE 27 mmol/L (22-29); CHLORIDE 108 mmol/L (98-107); CREATININE 0.77 mg/dL (0.60-1.30); GLOMERULAR FILTR. RATE CALC > 60 mL/min (>60); GLUCOSE,RANDOM 95 mg/dL (70-110); POTASSIUM 4.8 mmol/L (3.5-5.1); SODIUM SERUM 146 mmol/L (136-145); UREA NITROGEN, BLOOD 7 mg/dL (7-18)
[2019-10-25 01:38] LABS: ALANINE AMINOTRANSFERASE 49 U/L (12-78); ALBUMIN 3.8 g/dL (3.4-5.0); ALKALINE PHOSPHATASE 108 U/L (46-116); ASPARTATE AMINOTRANSFERASE 28 U/L (15-37); BILIRUBIN,TOTAL 0.1 mg/dL (0.1-1.0)
[2019-10-25 02:20] VITALS: BP 126/87
== END 2019-10-25 02:30 | disposition home or self-care (01) ==
LOC: EMS 22:32
DX: F10.129 Alcohol abuse with intoxication, unspecified (principal); F32.9 Major depressive disorder, single episode, unspecified; F20.9 Schizophrenia, unspecified; G89.29 Other chronic pain; F17.210 Nicotine dependence, cigarettes, uncomplicated; Z79.899 Other long term (current) drug therapy; Y90.8 Blood alcohol level of 240 mg/100 ml or more
CPT/HCPCS: 36415; 80053; 85025; 99283; G0480

== ENCOUNTER 2019-10-25 13:28 | Emergency (ER) | payer MEDICAID ==
[~2019-10-25] VITALS: Ht 182.9 cm; Wt 70.5 kg
[~2019-10-25 13:28] MED LIST changes: -NAPR500T6 PO
[2019-10-25 15:59] LABS: BASOPHILS % (AUTO) 0.7 % (0.0-2.0); EOSINOPHILS % (AUTO) 0.6 % (1.0-6.0); HEMATOCRIT 39.8 % (41-53); HEMOGLOBIN 13.4 g/dL (13.5-17.5); LYMPHOCYTES % (AUTO) 38.3 % (22.0-44.0); MEAN CORPUSCULAR HEMOGLOBIN 32.5 pg (26.0-34.0); MEAN CORPUSCULAR HGB CONC 33.6 G/dL (31.0-37.0); MEAN CORPUSCULAR VOLUME 97 fL (80-100); MONOCYTES # (AUTO) 0.9 K/uL (0.1-1.0); MONOCYTES % (AUTO) 8.8 % (2.0-9.0); NEUTROPHILS # (AUTO) 5.3 K/uL (1.8-7.7); NEUTROPHILS % (AUTO) 51.6 % (40.0-70.0); RED BLOOD CELL COUNT(AUTO) 4.11 MIL/uL (4.50-5.90); RED CELL DISTRIBUTION WIDTH 14.1 % (11.5-14.5)
[2019-10-25 16:09] LABS: ANION GAP 11 mmol/L (8-16); CALCIUM, TOTAL 8.7 mg/dL (8.8-10.5); CARBON DIOXIDE 25 mmol/L (22-29); CHLORIDE 104 mmol/L (98-107); CREATININE 0.82 mg/dL (0.60-1.30); GLOMERULAR FILTR. RATE CALC > 60 mL/min (>60); GLUCOSE,RANDOM 82 mg/dL (70-110); SODIUM SERUM 140 mmol/L (136-145); UREA NITROGEN, BLOOD 7 mg/dL (7-18)
[2019-10-25 16:16] LABS: ALANINE AMINOTRANSFERASE 47 U/L (12-78); ALBUMIN 3.5 g/dL (3.4-5.0); ALKALINE PHOSPHATASE 96 U/L (46-116); ASPARTATE AMINOTRANSFERASE 34 U/L (15-37); BILIRUBIN,TOTAL 0.2 mg/dL (0.1-1.0); TOTAL PROTEIN, SERUM 7.5 g/dL (6.4-8.2)
[2019-10-25 16:34] LABS: PLATELET COUNT (AUTO) 345 K/uL (150-450)
[2019-10-25 18:00] VITALS: BP 100/68
== END 2019-10-25 18:20 | disposition home or self-care (01) ==
LOC: EMS 13:30
DX: F10.129 Alcohol abuse with intoxication, unspecified (principal); G89.29 Other chronic pain; F32.9 Major depressive disorder, single episode, unspecified; F17.210 Nicotine dependence, cigarettes, uncomplicated; Z79.899 Other long term (current) drug therapy; Y90.8 Blood alcohol level of 240 mg/100 ml or more
CPT/HCPCS: 36415; 80053; 85025; 99283; G0480

== ENCOUNTER 2019-11-07 13:18 | Emergency (ER) | payer MEDICAID ==
[~2019-11-07] VITALS: Ht 182.9 cm; Wt 70.5 kg
[2019-11-07] MEDS ORDERED: IBUPROFEN 400 MG TABLET PO ONE (14:15)
[2019-11-07 15:28] LABS: BASOPHILS % (AUTO) 1.6 % (0.0-2.0); EOSINOPHILS % (AUTO) 2.2 % (1.0-6.0); HEMATOCRIT 39.4 % (41-53); HEMOGLOBIN 13.1 g/dL (13.5-17.5); MEAN CORPUSCULAR HEMOGLOBIN 32.4 pg (26.0-34.0); MEAN CORPUSCULAR HGB CONC 33.2 G/dL (31.0-37.0); MEAN CORPUSCULAR VOLUME 97 fL (80-100); MONOCYTES # (AUTO) 0.7 K/uL (0.1-1.0); MONOCYTES % (AUTO) 7.9 % (2.0-9.0); NEUTROPHILS # (AUTO) 5.2 K/uL (1.8-7.7); NEUTROPHILS % (AUTO) 56.3 % (40.0-70.0); PLATELET COUNT (AUTO) 255 K/uL (150-450); RED BLOOD CELL COUNT(AUTO) 4.04 MIL/uL (4.50-5.90); RED CELL DISTRIBUTION WIDTH 13.4 % (11.5-14.5)
[2019-11-07 15:42] LABS: ANION GAP 9 mmol/L (8-16); CALCIUM, TOTAL 8.9 mg/dL (8.8-10.5); CARBON DIOXIDE 29 mmol/L (22-29); CHLORIDE 105 mmol/L (98-107); CREATININE 0.61 mg/dL (0.60-1.30); GLOMERULAR FILTR. RATE CALC > 60 mL/min (>60); GLUCOSE,RANDOM 88 mg/dL (70-110); POTASSIUM 3.4 mmol/L (3.5-5.1); SODIUM SERUM 143 mmol/L (136-145); UREA NITROGEN, BLOOD 3 mg/dL (7-18)
[2019-11-07 15:53] LABS: ALANINE AMINOTRANSFERASE 35 U/L (12-78); ALBUMIN 3.3 g/dL (3.4-5.0); ALKALINE PHOSPHATASE 86 U/L (46-116); ASPARTATE AMINOTRANSFERASE 34 U/L (15-37); BILIRUBIN,TOTAL 0.1 mg/dL (0.1-1.0)
[2019-11-07 18:34] VITALS: BP 100/72
== END 2019-11-07 18:20 | disposition home or self-care (01) ==
LOC: EMS 13:19
DX: M16.0 Bilateral primary osteoarthritis of hip (principal); G89.29 Other chronic pain; F32.9 Major depressive disorder, single episode, unspecified; F20.9 Schizophrenia, unspecified; F17.210 Nicotine dependence, cigarettes, uncomplicated; Z79.899 Other long term (current) drug therapy
CPT/HCPCS: 36415; 73503; 80053; 85025; 99284; G0480

== ENCOUNTER 2019-11-07 19:35 | Emergency (ER) | payer MEDICAID ==
[~2019-11-07] VITALS: Ht 180.3 cm; Wt 68.2 kg
[2019-11-08] MEDS ORDERED: RisperiDONE 1 MG TABLET PO ONE (01:15)
[2019-11-08 01:19] LABS: BASOPHILS % (AUTO) 1.1 % (0.0-2.0); EOSINOPHILS % (AUTO) 3.9 % (1.0-6.0); HEMOGLOBIN 13.8 g/dL (13.5-17.5); LYMPHOCYTES # (AUTO) 3.2 K/uL (1.0-4.8); LYMPHOCYTES % (AUTO) 42.2 % (22.0-44.0); MEAN CORPUSCULAR HEMOGLOBIN 32.6 pg (26.0-34.0); MEAN CORPUSCULAR HGB CONC 33.7 G/dL (31.0-37.0); MEAN CORPUSCULAR VOLUME 97 fL (80-100); MONOCYTES # (AUTO) 0.6 K/uL (0.1-1.0); MONOCYTES % (AUTO) 8.6 % (2.0-9.0); NEUTROPHILS # (AUTO) 3.3 K/uL (1.8-7.7); NEUTROPHILS % (AUTO) 44.2 % (40.0-70.0); PLATELET COUNT (AUTO) 283 K/uL (150-450); RED BLOOD CELL COUNT(AUTO) 4.24 MIL/uL (4.50-5.90); RED CELL DISTRIBUTION WIDTH 14.1 % (11.5-14.5)
[2019-11-08 01:26] LABS: ANION GAP 6 mmol/L (8-16); CALCIUM, TOTAL 9.4 mg/dL (8.8-10.5); CARBON DIOXIDE 32 mmol/L (22-29); CHLORIDE 106 mmol/L (98-107); CREATININE 0.65 mg/dL (0.60-1.30); GLOMERULAR FILTR. RATE CALC > 60 mL/min (>60); GLUCOSE,RANDOM 102 mg/dL (70-110); POTASSIUM 3.9 mmol/L (3.5-5.1); SODIUM SERUM 144 mmol/L (136-145); UREA NITROGEN, BLOOD 5 mg/dL (7-18)
[2019-11-08 01:33] LABS: ALANINE AMINOTRANSFERASE 41 U/L (12-78); ALBUMIN 3.6 g/dL (3.4-5.0); ALKALINE PHOSPHATASE 85 U/L (46-116); ASPARTATE AMINOTRANSFERASE 38 U/L (15-37); BILIRUBIN,TOTAL 0.2 mg/dL (0.1-1.0); TOTAL PROTEIN, SERUM 7.8 g/dL (6.4-8.2)
[2019-11-08 01:35] LABS: ACETAMINOPHEN < 2 mcg/mL (10-30)
[2019-11-08 01:39] LABS: SALICYLATE 4.7 mg/dL (2.8-20.0)
[2019-11-08 02:04] VITALS: BP 119/80
== END 2019-11-08 02:41 | disposition home or self-care (01) ==
LOC: EMS 19:36
DX: F20.9 Schizophrenia, unspecified (principal); F32.9 Major depressive disorder, single episode, unspecified; F17.210 Nicotine dependence, cigarettes, uncomplicated; Z79.899 Other long term (current) drug therapy
CPT/HCPCS: 36415; 80053; 85025; 99284; G0480 ×2; G0481